=== PATIENT | male | born 1980 | race Caucasian/White ===

== ENCOUNTER 2021-05-09 21:12 | Inpatient (IN) | payer OTHER ==
[~2021-05-09] VITALS: Ht 172.7 cm; Wt 86.4 kg
[2021-05-09] MEDS ORDERED: TIOT18INH INH (21:41)
[2021-05-09] MEDS ORDERED: ALBU83IN INH (21:41)
[2021-05-09 22:36] LABS: HEMOGLOBIN 17.8 g/dl (13.5-17.5); MEAN CORPUSCULAR HEMOGLOBIN 32.2 pg (27.0-33.0); MEAN CORPUSCULAR VOLUME 97.6 fl (80.0-96.0); PLATELET COUNT, AUTOMATED 225 10^3/uL (150-450); RED BLOOD COUNT 5.53 10^6/uL (4.30-6.10); WHITE BLOOD COUNT 6.6 10^3/uL (4.0-10.0)
[2021-05-09 23:16] LABS: ACETAMINOPHEN LEVEL < 2.0 UG/ML (10.0-30.0); ALBUMIN 3.5 GM/DL (3.2-5.2); ALT/SGPT 32 U/L (12-78); BILIRUBIN,DIRECT 0.1 MG/DL (0.0-0.2); BILIRUBIN,TOTAL 0.4 MG/DL (0.2-1.0); BLOOD UREA NITROGEN 14 MG/DL (7-18); CALCIUM LEVEL 9.2 MG/DL (8.5-10.1); CARBON DIOXIDE LEVEL 28 MEQ/L (21-32); CHLORIDE LEVEL 106 MEQ/L (98-107); CREATININE FOR GFR 0.77 MG/DL (0.70-1.30); ETHYL ALCOHOL (ETHANOL) < 0.003 % (0.000-0.010); GLOMERULAR FILTRATION RATE > 60.0 (>60); GLUCOSE, FASTING 97 MG/DL (70-100); POTASSIUM SERUM 4.7 MEQ/L (3.5-5.1); SALICYLATE LEVEL 4.5 MG/DL (5.0-30.0); SODIUM LEVEL 140 MEQ/L (136-145); THYROID STIMULATING HORMONE 0.836 uIU/ML (0.358-3.740); TOTAL PROTEIN 6.8 GM/DL (6.4-8.2)
[2021-05-10 00:54] LABS: AMPHETAMINES LEVEL URINE NEGATIVE (NEGATIVE); BARBITURATES URINE NEGATIVE (NEGATIVE); BENZODIAZEPINES URINE NEGATIVE (NEGATIVE); CANNABINOIDS URINE POSITIVE (NEGATIVE); COCAINE METABOLITE URINE NEGATIVE (NEGATIVE); METHADONE URINE NEGATIVE (NEGATIVE); OPIATES URINE NEGATIVE (NEGATIVE); PHENCYCLIDINE URINE NEGATIVE (NEGATIVE)
[2021-05-10] MEDS ORDERED: COMBIVENT RESPIMAT 100-20MCG INHALER 4GM INH ONE (04:35)
[2021-05-10 05:07] LABS: RSV AMPLIFICATION NEGATIVE (NEGATIVE)
[2021-05-10] MEDS ORDERED: HOME MED LIST COMPLETE! XX SCH (05:20)
[2021-05-10] MEDS ORDERED: MAALOX 30 ML SUSP *UDC PO PRN (06:05)
[2021-05-10] MEDS ORDERED: traZODone 50 MG TAB PO PRN (06:05)
[2021-05-10] MEDS ORDERED: ACETAMINOPHEN TAB 650MG DOSE (2X325MG) PO PRN (06:05)
[2021-05-10] MEDS ORDERED: OLANZapine ORAL DISINTEGRATING TAB 5MG PO PRN (06:05)
[2021-05-10] MEDS ORDERED: MOM 30ML SUSPENSION UDC PO PRN (06:05)
[2021-05-10] MEDS: SERTRALINE HCL 50 MG TAB PO SCH ×2 (09:00→09:03)
[2021-05-10] MEDS ORDERED: NICOTINE 21MG/24HR 1 EA TRANSDERMAL TD ONE (12:10)
[2021-05-10 13:43] VITALS: BP 136/84
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
[2021-05-10] MEDS ORDERED: NICO21PAT TD (15:18)
[2021-05-11 06:54] VITALS: BP 138/83
[2021-05-11] MEDS ORDERED: NICOTINE 21MG/24HR 1 EA TRANSDERMAL TD SCH (09:00)
[2021-05-11] MEDS: SERTRALINE HCL 50 MG TAB PO SCH (09:00)
--- NOTE | 2021-05-11 15:26 | MHDSPDOC ---
[facility] Discharge Summary Discharge Summary DATE OF ADMISSION: May 10, 2021 at 06:03 DATE OF DISCHARGE: May 11, 2021 at 11:15 DISCHARGE DIAGNOSES: Adjustment disorder with mixed disturbances of emotions and conduct Alcohol use disorder Nicotine use disorder Cannabis use disorder This discharge interview was done by Wyatt as the provider is not in the hospital at the time the patient was being discharged to home. REASON FOR ADMISSION: Patient is a 40 -year-old , employed, domiciled , male, who reports that he made a mistake, made a suicidal statement to his after a verbal altercation. He reports spending a good day with his family on Friday and Friday and by Friday evening his ex- was not wanting to talk to him and stated that she was going to stay with her boyfriend. He reported to her that he was calling CPS as she was sleeping with her boyfriend, and there was suspicion of substance use in front of the children. During the interview patient is alert and oriented, denies suicidal ideation, is remorseful states he made a mistake requesting to be discharge, future oriented as he wants to be able to go to work tomorrow if he gets discharged early enough. PER ED REPORT Pt was brought to the ED by police on a 9.41 after making suicidal statements to his ex- over the phone. Pt's ex- recorded part of the conversation, which police played for TW. In the recording pt states that he is going to get a gun & shoot himself because nobody cares & then he tells his ex- to stay on the phone so she can hear him do it. Per police, pt has guns in the home. Pt states that he & his two months ago & she left with the kids. He states that he still sees the kids, although not as frequently as he would like. He states that she "is playing me & another lui & strings us both along." Pt states that he called her & they had an argument. Pt states that he said to his "You've taken everything so I might as well take my life." Pt states that he did not say how he would take his life. Pt denies both SI & HI & states he only made the statements because he was angry. TW informed pt that his made a recording & the police played it for TW. When asked if he told her that he was going to shoot himself & for her to stay on the phone so she could hear it he states "I don't remember." Pt appears to be minimizing in order to be DC as he states that he needs to go to work. Pt denies any hx of suicide attempts or self-harm. He denies both AH & VH. He does not appear to be psychotic. Pt does c/o depressed mood & erratic appetite. He reports that his concentration, energy levels, & sleep are normal. Pt denies any hx of mental health dx or tx. No hx of admissions. No current OP tx. Pt reports that he drinks 4-5 beers 2-3 times per week. He reports daily MJ use & his tox screen was positive for cannabis. TW spoke to pt's , Cynthia ([phone]), with pt's permission. She states that pt called her & was "irate" & told her that she belongs to him & she needs to come home. She states that in addition to what was on the recording, she could hear pt get a gun out of the safe, heard him loading it, & heard him "cock it." She states that pt has made suicidal statements before, but he has never gone so far as to actually get out a gun & load it. She feels that pt is a danger to himself & needs to be hospitalized. VITAL SIGNS: See below. CONSULTANTS INVOLVED: See Medical H + P by Hospitalist TREATMENT AND PROGRESS ON THE UNIT: Patient was admitted to the [facility] on a legal status was afforded the following treatment modalities: 1) Individual Therapy 2) Group Therapy 3) Medication Management 4) Milieu Therapy 5) Safe Environment HOSPITAL COURSE: Patient was admitted to [facility] on a 39 legal status. Patient is a 40-year-old , employed, domiciled, male who reports that he got into a verbal altercation with his ex- over being able to see his children, her staying with her boyfriend, possible substance use in front of the children by her boyfriend. She reports that she made a recording of him taking gun out of the safe, loading it, cocking it. He denies that he did this states that he is never had a suicidal gesture or attempt. Throughout the interview he reports that he made a mistake, states that he wants to move on with his life, wants to be able to see his children, wants to return to work. Patient at this time reporting no suicidal ideation no history of depression no history of anx iety no history of suicidal attempts. .He is declining medications. Patient was safe acted. Patient refused medications and declined any offer of antidepressant, antianxiety medications . His mood, anxiety, and intrusive thoughts improved with hospitalization only. Pt attended groups during stay. Pts symptoms improved with hospitalization. On day of discharge pt. denied de pression, anxiety, insomnia, SI/HI, hallucinations, delusions. Pt was discharged home with follow-up at [facility]. Pt felt safe for discharge. Patient denies continued suicidal or homicidal ideations stating that he wanted to return to work, he wants to work with his ex- in having some kind of visitations with his children, and will stay away from her current boyfriend . DISCHARGE ASSESSMENT: In today's interview, patient is alert and oriented, pt.s dress is appropriate. Hygiene and grooming is well-kempt. Smiles on approach and is pleasant and engaged in the interview. Denies depression and anxiety. Denies suicidal and homicidal ideation, planning or intent. Denies and is not observed with nasrin, psychotic symptoms of delusions, bizarre thinking, obsessions, paranoia, ruminations illogical thoughts, flight of ideas or having poor insight and judgement. Reinforced with patient need to abstain from alcohol and drugs. At discharge patient has normal mentation, declines further hospitalization on a voluntary status and meets criteria for discharge today. Discussed indications of medications, potential benefits and risks, alternatives (including no treatment) and questions were encouraged and answered. Patient encouraged to return to hospital if symptoms worsen or change and encouraged to call unit if he/she/they needs to speak to provider for questions regarding medications or care. MENTAL STATUS EXAMINATION ON DISCHARGE: Patient was admitted to [facility] on a 9.39 legal status. Patient is a 40-year-old , employed, domiciled, male who reports that he got into a verbal altercation with his ex- over being able to see his children, her staying with her boyfriend, possible substance use in front of the children by her boyfriend. Speech: Is fluid, conversant, normal rate, tone and volume Language skills are intact Thought processes including: linear and goal oriented Thought content: denies depression and anxiety. Denies suicidal/homicidal ideation, planning or intent. Abstract reasoning, and computation: fair Description of associations: denies, none observed Description of abnormal or psychotic thoughts: denies, none observed. Judgment: fair Insight: fair Orientation: alert and oriented to person, place, time and situation Recent and remote memory: intact Attention span and concentration: good Language: expansive Fund of knowledge: average Mood: Euthymic Mood Affect: reactive Suicide Risk Assessment: 1) Does the patient wish to be ? No 2) Since your admission, have you had any actual thought of killing yourself? No 3) Since your admission, have you been thinking about how you might do this? No 4) Since your admission, have you had these thoughts and had some intention of acting on them? No 5) Since your admission, have you started to work out or worked out the details of how to kill yourself? No 5A) Do you intent to carry out this plan? No and NA 6) Have you ever done anything, started anything, or prepared to do anything with any intent to ? No 6A) How long since your admission did you do any of these? NA MEDICATIONS ON DISCHARGE: See Medication Reconciliation PLAN/FOLLOWUP ARRANGEMENTS: Mental Health Appt 1 * Mental Health [facility] * Established With This Provider No * Therapist NICOLA * Date May 17, 2021 * Time 14:00 * Address of Clinic or Practice [address] [place] [address] * * Additional information PLEASE BRING INSRUANCE CARD AND ID, ARRIVE 5 MINS EARLY TO SIGN PAPERWORK. Follow Up Care Education Label * Medical * Medical Follow Up [facility] * Established With This Provider No * Therapist JAIME * Date Jun 07, 2021 * Time 13:00 * Address of Clinic or Practice [address] [place] [address] * The amount of time spent in the coordination of care for this patient was appr oximately 20 minutes. ETOH/Disorder Med Rx ETOH/DRUG DISORDER RX: Offrd @ d/c & pt refused Vital Signs/I&Os Vital Signs Date Time Temp Pulse Resp B/P (MAP) Pulse Ox O2 Delivery O2 Flow Rate FiO2 05/11/21 06:54 98.4 98 18 138/83 (101) 90 Room Air Medications Scheduled Nicotine (Nicotine Patch) 21 Mg Patch.td24, 1 PATCH TD DAILY for Nicotine Withdrawal, #7 Tiotropium [place] Monohydrate (Spiriva) 18 Mcg Cap.w.dev, 1 INHALATION INH DAILY, (Reported) Scheduled PRN Albuterol Sulf (Albuterol Sulfate) 2.5 Mg/3 Ml Vial.neb, 2.5 MG INH for SHORTNESS OF BREATH, (Reported) Allergies Coded Allergies: No Known Allergies (Unverified , 05/09/21) ZHANNA MARQUEZ NP May 11, 2021 15:25
== END 2021-05-11 11:15 | disposition home or self-care (01) | DRG 882 ==
LOC: M ED 21:12 → M ED INP 05-10 06:03 → M PSY 05-10 09:32
PROVIDERS: ADMIT Psychiatry & Neurology Psychiatry; ATTEND Psychiatry & Neurology Psychiatry
DX: F43.25 Adjustment disorder with mixed disturbance of emotions and conduct (principal); F10.10 Alcohol abuse, uncomplicated; F17.200 Nicotine dependence, unspecified, uncomplicated; F12.10 Cannabis abuse, uncomplicated; Z63.5 Disruption of family by separation and divorce; Z20.822 Contact with and (suspected) exposure to COVID-19; Z79.899 Other long term (current) drug therapy